=== PATIENT | male | born 1980 | race Caucasian/White ===

== ENCOUNTER 2018-11-23 16:54 | Emergency (ER) | payer MEDICAID ==
--- NOTE | 2018-11-23 17:12 | NUR ---
Not in lobby at 1518
--- NOTE | 2018-11-23 17:37 | NUR ---
Not in lobby at 1736
--- NOTE | 2018-11-23 17:51 | NUR ---
Not in lobby at 1751
--- NOTE | 2018-11-24 09:26 | NUR ---
Called patient to return to ER. No answer, left REGINALD.
--- NOTE | 2018-11-24 09:28 | NUR ---
Spoke with patient, he states he had dental pain that caused chest pain. States he has an appt today for dental work.
== END 2018-11-23 17:51 | disposition left against medical advice (07) ==
LOC: ER 16:54
DX: R07.9 Chest pain, unspecified (principal); Z53.21 Procedure and treatment not carried out due to patient leaving prior to being seen by health care provider
CPT/HCPCS: 93005